=== PATIENT | female | born 1995 | race Caucasian/White ===

== ENCOUNTER 2016-08-08 16:40 | Emergency (ER) | payer OTHER ==
[2016-08-08] MEDS ORDERED: ACETAMINOPHEN TAB 500 MG TAB PO STA (17:45)
[2016-08-08] MEDS ORDERED: SODIUM CHLORIDE 0.9% 1,000 ML IV STA (17:45)
--- NOTE | 2016-08-08 17:53 | ED ---
Female Urogenital HPI - General Chief complaint: Vaginal Bleeding Stated complaint: Abd Pain, Female Time Seen by Provider: 08/08/16 17:32 Source: patient, RN notes reviewed Mode of arrival: ambulatory Limitations: no limitations - History of Present Illness Initial comments: 20-year-old female presents to the emergency department with a chief complaint of vaginal bleeding. Patient states she is 8 days late for her. She is having abdominal discomfort. Patient states she is concerned about she has been trying to get . Patient states that her lower pelvis is in a lot of discomfort. Patient states that she hasn't had any nausea vomiting. Patient states she hasn't felt fever or chills. Patient states that she is not currently having any other symptoms at this time.Patient denies any recent shortness of breath, chest pain, back pain, nausea vomiting, numbness or tingling, dysuria or hematuria, constipation or diarrhea, headaches or visual changes, or any other current symptoms. Last Menstrual Period: 07/14/16 - Related Data Home Medications Medication Instructions Recorded Confirmed Cephalexin [Keflex] 500 mg PO TID 08/08/16 08/08/16 Mupirocin 2% Oint [Bactroban 2% 1 applic TOPICAL TID 08/08/16 08/08/16 Oint] Pnp-Ikfr-Uwpda Acid 1 cap PO DAILY 08/08/16 08/08/16 [-U Capsule (formulary)] Sertraline [Zoloft] 25 mg PO DAILY 08/08/16 08/08/16 Allergies Allergy/AdvReac Type Severity Reaction Status Date / Time amoxicillin [Amoxicillin] Allergy Rash/Hives Verified 08/08/16 18:01 latex Allergy Rash/Hives Verified 08/08/16 18:01 Review of Systems ROS Statement: Those systems with pertinent positive or pertinent negative responses have been documented in the HPI. ROS Other: All systems not noted in ROS Statement are negative. Past Medical History Past Medical History: No Reported History History of Any Multi-Drug Resistant Organisms: None Reported Past Surgical History: No Surgical Hx Reported Past Psychological History: No Psychological Hx Reported Smoking Status: Never smoker Past Alcohol Use History: None Reported Past Drug Use History: None Reported General Exam - General Exam Comments Initial Comments: General: The patient is awake and alert, in no distress, and does not appear acutely ill. Eye: Pupils are equal, round and reactive to light, extra-ocular movements are intact; there is normal conjunctiva bilaterally. No signs of icterus. Ears, nose, mouth and throat: There are moist mucous membranes and no oral lesions. Neck: The neck is supple, there is no tenderness.gallop is appreciated. Respiratory: Lungs are clear to auscultation, respirations are non-labored, breath sounds are equal. No wheezes, stridor, rales, or rhonchi. Gastrointestinal: Soft, non-distended, non-tender abdomen without masses or organomegaly noted. There is no rebound or guarding present. No CVA tenderness. Bowel sounds are unremarkable. Back: There is no tenderness to palpation in the midline. There is no obvious deformity. No rashes noted. Musculoskeletal: Normal ROM, no tenderness, There is no pedal edema. There is no calf tenderness or swelling. Sensation intact. Pulses equal bilaterally 2+. Neurological: CN II-XII intact, There are no obvious motor or sensory deficits. Coordination appears grossly intact. Speech is normal. Skin: Skin is warm and dry and no rashes or lesions are noted. Psychiatric: Cooperative, appropriate mood & affect, normal judgment. Limitations: no limitations External exam: Present: normal external exam Speculum exam: Present: normal speculum exam, vaginal bleeding (Mild) By manual exam: Present: adnexal tenderness (Minimal on the right). Absent: cervical motion tenderness Course Vital Signs 08/08/16 17:09 Temperature 100.7 F H Pulse Rate 99 Respiratory 20 Rate Blood Pressure 136/80 O2 Sat by Pulse 98 Oximetry Medical Decision Making - Medical Decision Making 20 yo female presents for vaginal bleeding and abdominal pain. At this time vaginal bleeding is minimal. Patient is negative for . At this time we discussed Motrin Tylenol for the pain. We discussed follow-up with [employer] and return parameters. Patient has a mild low-grade fever which is most likely related to menstrual cycle. At this time the patient is agreeable with plan and all questions have been answered. She will be discharged home. - Lab Data Result diagrams: 08/08/16 18:00 08/08/16 18:00 Lab Results 08/08/16 08/08/16 08/08/16 Range/Units 18:00 18:00 18:00 WBC 11.1 H (4.0-11.0) k/uL RBC 5.30 (3.80-5.40) m/uL Hgb 13.9 (11.4-16.0) gm/dL Hct 42.4 (34.0-46.0) % MCV 80.0 (80.0-100.0) fL MCH 26.2 (25.0-35.0) pg MCHC 32.7 (31.0-37.0) g/dL RDW 14.4 (11.5-15.5) % Plt Count 365 (150-450) k/uL Neutrophils % 71 % Lymphocytes % 22 % Monocytes % 4 % Eosinophils % 1 % Basophils % 0 % Neutrophils # 7.9 H (1.3-7.7) k/uL Lymphocytes # 2.4 (1.0-4.8) k/uL Monocytes # 0.5 (0-1.0) k/uL Eosinophils # 0.2 (0-0.7) k/uL Basophils # 0.0 (0-0.2) k/uL Sodium 145 (137-145) mmol/L Potassium 4.2 (3.5-5.1) mmol/L Chloride 109 H (98-107) mmol/L Carbon Dioxide 25 (22-30) mmol/L Anion Gap 11 mmol/L BUN 10 (7-17) mg/dL Creatinine 0.68 (0.52-1.04) mg/dL Est GFR (MDRD) Af Amer >60 (>60 ml/min/1.73 sqM) Est GFR (MDRD) Non-Af >60 (>60 ml/min/1.73 sqM) Glucose 91 (74-99) mg/dL Calcium 9.9 (8.4-10.2) mg/dL Total Bilirubin 0.3 (0.2-1.3) mg/dL AST 19 (14-36) U/L ALT 34 (9-52) U/L Alkaline Phosphatase 101 (38-126) U/L Total Protein 7.6 (6.3-8.2) g/dL Albumin 4.2 (3.5-5.0) g/dL HCG, Quant <2.4 mIU/mL Urine Color Urine Appearance (Clear) Urine pH (5.0-8.0) Ur Specific [place] (1.001-1.035) Urine Protein (Negative) Urine Glucose (UA) (Negative) Urine Ketones (Negative) Urine Blood (Negative) Urine Nitrite (Negative) Urine Bilirubin (Negative) Urine Urobilinogen (<2.0) mg/dL Ur Leukocyte Esterase (Negative) Urine RBC (0-5) /hpf Urine WBC (0-5) /hpf Ur Squamous Epith Cells (0-4) /hpf Urine Mucus (None) /hpf Urine HCG, Qual Not Detected (Not Detectd) Influenza Type A RNA (Not Detectd) Influenza Type B (PCR) (Not Detectd) 08/08/16 08/08/16 Range/Units 18:00 18:00 WBC (4.0-11.0) k/uL RBC (3.80-5.40) m/uL Hgb (11.4-16.0) gm/dL Hct (34.0-46.0) % MCV (80.0-100.0) fL MCH (25.0-35.0) pg MCHC (31.0-37.0) g/dL RDW (11.5-15.5) % Plt Count (150-450) k/uL Neutrophils % % Lymphocytes % % Monocytes % % Eosinophils % % Basophils % % Neutrophils # (1.3-7.7) k/uL Lymphocytes # (1.0-4.8) k/uL Monocytes # (0-1.0) k/uL Eosinophils # (0-0.7) k/uL Basophils # (0-0.2) k/uL Sodium (137-145) mmol/L Potassium (3.5-5.1) mmol/L Chloride (98-107) mmol/L Carbon Dioxide (22-30) mmol/L Anion Gap mmol/L BUN (7-17) mg/dL Creatinine (0.52-1.04) mg/dL Est GFR (MDRD) Af Amer (>60 ml/min/1.73 sqM) Est GFR (MDRD) Non-Af (>60 ml/min/1.73 sqM) Glucose (74-99) mg/dL Calcium (8.4-10.2) mg/dL Total Bilirubin (0.2-1.3) mg/dL AST (14-36) U/L ALT (9-52) U/L Alkaline Phosphatase (38-126) U/L Total Protein (6.3-8.2) g/dL Albumin (3.5-5.0) g/dL HCG, Quant mIU/mL Urine Color Light Red Urine Appearance Cloudy H (Clear) Urine pH 5.5 (5.0-8.0) Ur Specific [place] 1.012 (1.001-1.035) Urine Protein 1+ H (Negative) Urine Glucose (UA) Negative (Negative) Urine Ketones Negative (Negative) Urine Blood Large H (Negative) Urine Nitrite Negative (Negative) Urine Bilirubin Negative (Negative) Urine Urobilinogen <2.0 (<2.0) mg/dL Ur Leukocyte Esterase Moderate H (Negative) Urine RBC >182 H (0-5) /hpf Urine WBC 75 H (0-5) /hpf Ur Squamous Epith Cells 2 (0-4) /hpf Urine Mucus Rare H (None) /hpf Urine HCG, Qual (Not Detectd) Influenza Type A RNA Not Detected (Not Detectd) Influenza Type B (PCR) Not Detected (Not Detectd) Disposition Clinical Impression: Menorrhagia Disposition: HOME SELF-CARE Condition: Stable Instructions: Menstruation (ED) Additional Instructions: Please use medication as discussed. Please follow up with family doctor if symptoms have not improved over the next two days. Please return to the emergency room if your symptoms increase or worsen or for any other concerns. Referrals: Sergio Matute Jr, DO [Primary Care Provider] - 1-2 days Time of Disposition: 18:56
[2016-08-08 18:25] LABS: Basophils % (A) 0 %; CHCM 32.6; Eosinophils # (A) 0.2 k/uL (0-0.7); Eosinophils % (A) 1 %; HCT 42.4 % (34.0-46.0); HDW 2.55; HGB 13.9 gm/dL (11.4-16.0); Luc # (Auto) 0.16; Luc % (Auto) 1; Lymphocytes # (A) 2.4 k/uL (1.0-4.8); Lymphocytes % (A) 22 %; MCH 26.2 pg (25.0-35.0); MCHC 32.7 g/dL (31.0-37.0); Mean Platelet Volume 6.9; Monocytes # (A) 0.5 k/uL (0-1.0); Monocytes % (A) 4 %; Neutrophils # (A) 7.9 k/uL (1.3-7.7); Neutrophils % (A) 71 %; RDW 14.4 % (11.5-15.5); WBC 11.1 k/uL (4.0-11.0); WBC (Perox) 11.39
[2016-08-08 18:31] LABS: Appearance,Urine Cloudy (Clear); Bilirubin,Urine Negative (Negative); Glucose,Urine (UA) Negative (Negative); Ketones,Urine Negative (Negative); Leukocyte Esterase,Urine Moderate (Negative); Mucus,Urine Rare /hpf; Nitrite,Urine Negative (Negative); PH, Urine 5.5 (5.0-8.0); Particle Count 7708; Protein,Urine 1+ (Negative); RBC,Urine >182 /hpf (0-5); Specific Gravity,Urine 1.012 (1.001-1.035); Squamous Epithelial Cell,Urine 2 /hpf (0-4); UA Billing (MACRO vs. MICRO) MICRO; Urobilinogen,Urine <2.0 mg/dL (<2.0); WBC,Urine 75 /hpf (0-5)
[2016-08-08 18:34] LABS: ALT 34 U/L (9-52); AST 19 U/L (14-36); Alkaline Phosphatase 101 U/L (38-126); Anion Gap 11 mmol/L; Blood Urea Nitrogen 10 mg/dL (7-17); Calcium 9.9 mg/dL (8.4-10.2); Carbon Dioxide 25 mmol/L (22-30); Chloride 109 mmol/L (98-107); Glucose 91 mg/dL (74-99); Non-African American GFR(MDRD) >60 (>60 ml/min/1.73 sqM); Potassium 4.2 mmol/L (3.5-5.1); Sodium 145 mmol/L (137-145); Total Bilirubin 0.3 mg/dL (0.2-1.3); Total Protein 7.6 g/dL (6.3-8.2)
[2016-08-08 18:50] LABS: HCG,Quantitative Serum <2.4 mIU/mL
[2016-08-08 19:18] VITALS: BP 132/71; PULSE 89; RESP 16; TEMP 100.2
== END 2016-08-08 19:16 | disposition home or self-care (01) ==
LOC: EC 16:40
DX: N92.0 Excessive and frequent menstruation with regular cycle (principal); R10.2 Pelvic and perineal pain; Z32.02 Encounter for pregnancy test, result negative; Z79.899 Other long term (current) drug therapy; Z88.0 Allergy status to penicillin; Z91.040 Latex allergy status
CPT/HCPCS: 36415; 80053; 81001; 81025; 84702; 85025; 87086; 87502; 96360; 99284

== ENCOUNTER → 2016-11-08 | Outpatient (CLI) | payer OTHER ==
[2016-11-08 17:39] LABS: CH 26.6; CHCM 32.7; HCT 39.3 % (34.0-46.0); HDW 2.42; MCV 81.6 fL (80.0-100.0); Mean Platelet Volume 7.1; RBC 4.81 m/uL (3.80-5.40); WBC 11.9 k/uL (4.0-11.0)
[2016-11-08 17:47] LABS: Glucose 82 mg/dL (74-99); Non-African American GFR(MDRD) >60 (>60 ml/min/1.73 sqM)
[2016-11-08 18:19] LABS: Hepatitis B Surface Ag Index 0.05
--- NOTE | 2016-11-08 19:18 | US ---
EXAMINATION TYPE: US OB <= 14 wk fetus DATE OF EXAM: 11/08/2016 COMPARISON: NONE CLINICAL HISTORY: Z36 Confirm dates. EXAM PERFORMED: Transabdominal (TA) EXAM MEASUREMENTS: GESTATIONAL AGE / DATING Physician Established: not established Dates by LMP: (13 weeks/1 day) EDC: 05/15/2017 Dates by First Scan: Today Dates by Current Scan for: (12 weeks/4 days) EDC: 05/19/2017 MATERNAL ANATOMY: exam is technically limited by large maternal body habitus Uterus: 13.8 x 7.5 x 6.8cm Right Ovary: not seen Left Ovary: 3.2 x 2.8 x 2.5cm Post CDS / Adnexa: wnl Presence of free fluid: no Presence of corpus luteal cyst: not identified Presence of subchorionic bleed: no GESTATION / SURVEY CRL: 6.1cm (12 weeks/4 days) Yolk Sac (normal less than 6mm): not seen Heart Rate: 172 bpm Rhythm: Normal IUP: Viable IUP Date of LMP: 08/08/2016 Beta HcG (if available): NA Single, live, IUP, 12 weeks/4 days),EDC: 05/19/2017, HR 172bpm. IMPRESSION: The ultrasound gestational age is 12 weeks 4 days. I see no complicating process. The JACLYN is 05/19/20 17.
== END | disposition home or self-care (01) ==
LOC: RADUSMAIN 17:25
PROVIDERS: ATTEND Obstetrics & Gynecology
DX: Z36 Encounter for antenatal screening of mother (principal); Z34.01 Encounter for supervision of normal first pregnancy, first trimester; Z3A.12 12 weeks gestation of pregnancy
CPT/HCPCS: 76801; 82565; 82947; 85027; 86762; 86777; 86778; 86780; 86850; 86900; 86901; 87340

== ENCOUNTER → 2017-02-24 | Outpatient (CLI) | payer OTHER ==
[2017-02-24 14:40] LABS: CH 27.1; HCT 34.8 % (34.0-46.0); HDW 2.72; HGB 11.4 gm/dL (11.4-16.0); MCHC 32.7 g/dL (31.0-37.0); MCV 82.5 fL (80.0-100.0); Mean Platelet Volume 8.4; RBC 4.21 m/uL (3.80-5.40); RDW 14.7 % (11.5-15.5); WBC 10.7 k/uL (4.0-11.0)
== END | disposition home or self-care (01) ==
LOC: LABWHC1 13:14
PROVIDERS: ATTEND Obstetrics & Gynecology
DX: Z34.02 Encounter for supervision of normal first pregnancy, second trimester (principal)
CPT/HCPCS: 36415; 82950; 85027

== ENCOUNTER 2017-03-09 14:49 | Outpatient (CLI) | payer OTHER ==
[2017-03-09 15:39] VITALS: BP 134/79; PULSE 103; RESP 16; TEMP 98.5
--- NOTE | 2017-03-22 08:57 | P.MSEPDOC ---
Presenting Problems - Arrival Data Date of Arrival on Unit: 03/09/17 Time of Arrival on Unit: 14:49 Mode of Transport: Ambulatory - Complaint OB-Reason for Admission/Chief Complaint: Decreased Movement Comment: pt states no movement since yesterday Medical History - Information : 1 Para: 0 Term: 0 : 0 Abortions: Spontaneous or Elective: 0 Number of Living Children: 0 - Gestational Age Gestational Age by JACLYN (wks/days): 30 Weeks and 3 Days Review of Systems - Review of Systems Constitutional: No problems Breast: No problems ENT: No problems Cardiovascular: No problems Respiratory: No problems Gastrointestinal: No problems Genitourinary: No problems Musculoskeletal: No problems Neurological: No problems Skin: No problems Vital Signs - Temperature Temperature: 98.5 F Temperature Source: Oral - Pulse Right Brachial Pulse Rate: 103 Pulse Assessment Method: Automatic Cuff - Respirations Respiratory Rate: 16 Oxygen Delivery Method: Room Air O2 Sat by Pulse Oximetry: 97 - Blood Pressure Right Arm Blood Pressure: 134/79 Blood Pressure Mean: 97 Blood Pressure Source: Automatic Cuff Medical Screen Scoring (Pre) - Uterine Contractions Frequency: N/A Duration: N/A Intensity: N/A - Maternal Vital Signs Maternal Temperature: N/A Maternal Blood Pressure: N/A Signs of Preeclampsia: N/A Maternal Respirations: N/A - Maternal Trauma Maternal Trauma: N/A - Assessment Baseline FHR: 140 Heart Rate - NICHD Category: Category I (Normal) = 0 NST: Reactive Position: N/A Station: N/A - Total Score Total Score (Pre): 0 - Level of Risk Level of Risk: Low (0-5) Physician Notification (Pre) - Physician Notified Physician Notified Date: 03/09/17 Physician Notified Time: 15:38 Physician/Practitioner Notifed:: Dr Cabrera Spoke With: Dr Cabrera New Order Received: No - Notification Comment Comment: pt may be discharged home Disposition - Disposition OB Disposition: Discharge to home Discharge Date: 03/09/17 Discharge Time: 15:39 I agree with the RN Medical Screening Exam: Yes Risk & Benefit of care provided described in d/c instruction: Yes Diagnosis: DECREASED MOVEMENTS, THIRD TRIMESTER, FETUS 1
== END 2017-03-09 15:47 | disposition home or self-care (01) ==
LOC: FBPOP 14:49
PROVIDERS: ATTEND Obstetrics & Gynecology
DX: O36.8130 Decreased fetal movements, third trimester, not applicable or unspecified (principal)
CPT/HCPCS: 59025; G0463; 99213

== ENCOUNTER 2017-05-28 19:03 | Inpatient (IN) | payer OTHER ==
[2017-05-28] MEDS ORDERED: RX INFO: IV CONTRAST WAS GIVEN 1 EACH MISC MISCELLANE PRN (19:30)
[2017-05-28] MEDS ORDERED: IBUPROFEN 800 MG TAB PO STA (19:30)
[2017-05-28] MEDS ORDERED: metroNIDAZOLE 500 MG TAB PO STA (19:35)
[2017-05-28] MEDS ORDERED: SODIUM CHLORIDE 0.9% 2,000 ML IV ONE (19:36)
[2017-05-28] MEDS ORDERED: SODIUM CHLORIDE 0.9% 1,000 ML IV ONE ×2 (19:36→19:37)
--- NOTE | 2017-05-28 19:44 | ED ---
Fever HPI - General Chief Complaint: Fever Stated Complaint: Poss Post Op Infection Time Seen by Provider: 05/28/17 19:16 Source: patient Mode of arrival: ambulatory Limitations: no limitations - History of Present Illness Initial Comments: Patient is a 21-year-old female, one week status post who presents with a chief complaint of fever and concerns for infection of her surgical site for 2 days. The patient states that she began having a fever about 2 days ago and then noticed drainage from her surgical site. Patient states that she has been going through 1 APD pad about every 2 hours. She states that the drainage is bloody and foul smelling. She denies any shortness of breath, dysuria, abdominal pain otherwise, constipation or diarrhea. The patient currently is taking Motrin and [place] for pain. She is currently breast-feeding. - Related Data Home Medications Medication Instructions Recorded Confirmed HYDROcodone/APAP 7.5-325MG [[place] 1 tab PO Q6H PRN 05/28/17 05/28/17 7.5-325] Previous Rx's Medication Instructions Recorded Ibuprofen [Motrin] 600 mg PO Q6HR PRN #30 tab 05/24/17 Allergies Allergy/AdvReac Type Severity Reaction Status Date / Time amoxicillin [Amoxicillin] Allergy Rash/Hives Verified 05/28/17 19:16 latex Allergy Rash/Hives Verified 05/28/17 19:16 Penicillins Allergy Rash/Hives Verified 05/28/17 19:16 Review of Systems ROS Statement: Those systems with pertinent positive or pertinent negative responses have been documented in the HPI. ROS Other: All systems not noted in ROS Statement are negative. Constitutional: Reports: fever, chills Skin: Reports: lesions, change in color Past Medical History Past Medical History: No Reported History Additional Past Medical History / Comment(s): Obstetric history: This is her first and she has had care with me since 11 weeks. O+, abs neg, RUb nonimmune, Treponemal ab neg, Hep B neg, toxo neg. GBS neg. History of Any Multi-Drug Resistant Organisms: None Reported Past Surgical History: No Surgical Hx Reported Past Anesthesia/Blood Transfusion Reactions: No Reported Reaction Past Psychological History: No Psychological Hx Reported Smoking Status: Former smoker Past Alcohol Use History: None Reported Past Drug Use History: None Reported - Past Family History Father Family Medical History: No Reported History General Exam Limitations: no limitations General appearance: alert, in no apparent distress Head exam: Present: atraumatic, normocephalic Respiratory exam: Present: normal lung sounds bilaterally Cardiovascular Exam: Present: normal rhythm, tachycardia GI/Abdominal exam: Present: soft. Absent: guarding, rebound Back exam: Present: normal inspection Neurological exam: Present: alert, oriented X3 Psychiatric exam: Present: normal affect, normal mood Skin exam: Present: other (Examination of the patient's surgical scar shows that she has surrounding erythema and induration. There is drainage with pressure applied to the surgical site. The drainage appears purulent and serosanguineous. There is a followed her present. The patient has tenderness to palpation of that area.) Course Vital Signs 05/28/17 05/28/17 05/28/17 19:10 20:15 20:30 Temperature 102 F H 103.2 F H 102.9 F H Pulse Rate 127 H 118 H 112 H Respiratory 20 18 18 Rate Blood Pressure 137/78 147/73 142/67 O2 Sat by Pulse 98 97 97 Oximetry 05/28/17 21:11 Temperature 102.5 F H Pulse Rate 104 H Respiratory 18 Rate Blood Pressure 131/59 O2 Sat by Pulse 96 Oximetry Medical Decision Making - Medical Decision Making Patient is a 21-year-old female who presents with a chief complaint of fever and concern for infection of her surgical site. On initial evaluation, patient is febrile and tachycardic. Examination of the site shows an obvious infection. At this time, the patient is considered septic with 2 seizures criteria and a source. Patient was given a total of 4 L normal saline bolus to meet the 30 mL per KG requirement. She was started on cefepime and Flagyl after consultation with Dr. Centeno. The patient with basic lab work, blood cultures, lactic, and be sent for CT evaluation of the abdomen and pelvis. Dr. eCnteno accepts admission under Dr. Watts. Dr. Centeno will be updated if the CT shows findings that require emergent consultation. Lab evaluation this patient is unremarkable. Computed tomography scan of the abdomen and pelvis shows inflammation at the surgical site, however it does not demonstrate any defined pocket or abscess. On reevaluation, the patient is still febrile and tachycardic. The decision was made to admit the patient to the select floor with IV antibiotics and IV fluids. The patient was transferred in stable condition. - Lab Data Result diagrams: 05/28/17 20:03 05/28/17 20:03 Lab Results 05/28/17 05/28/17 05/28/17 Range/Units 20:03 20:03 20:03 WBC 7.8 (4.0-11.0) k/uL RBC 3.49 L (3.80-5.40) m/uL Hgb 8.4 L (11.4-16.0) gm/dL Hct 27.1 L (34.0-46.0) % MCV 77.6 L (80.0-100.0) fL MCH 24.2 L (25.0-35.0) pg MCHC 31.2 (31.0-37.0) g/dL RDW 14.9 (11.5-15.5) % Plt Count 427 (150-450) k/uL Neutrophils % 79 % Lymphocytes % 13 % Monocytes % 5 % Eosinophils % 1 % Basophils % 0 % Neutrophils # 6.2 (1.3-7.7) k/uL Lymphocytes # 1.0 (1.0-4.8) k/uL Monocytes # 0.4 (0-1.0) k/uL Eosinophils # 0.1 (0-0.7) k/uL Basophils # 0.0 (0-0.2) k/uL Microcytosis Slight Sodium 140 (137-145) mmol/L Potassium 3.7 (3.5-5.1) mmol/L Chloride 104 (98-107) mmol/L Carbon Dioxide 25 (22-30) mmol/L Anion Gap 11 mmol/L BUN 8 (7-17) mg/dL Creatinine 0.60 (0.52-1.04) mg/dL Est GFR (MDRD) Af Amer >60 (>60 ml/min/1.73 sqM) Est GFR (MDRD) Non-Af >60 (>60 ml/min/1.73 sqM) Glucose 83 (74-99) mg/dL Plasma Lactic Acid Maurice 0.8 (0.7-2.0) mmol/L Calcium 8.7 (8.4-10.2) mg/dL Total Bilirubin 0.2 (0.2-1.3) mg/dL AST 18 (14-36) U/L ALT 40 (9-52) U/L Alkaline Phosphatase 176 H (38-126) U/L Total Protein 5.4 L (6.3-8.2) g/dL Albumin 2.7 L (3.5-5.0) g/dL Disposition Clinical Impression: Sepsis, Surgical wound infection, Systemic inflammatory response syndrome (SIRS ) Disposition: ADMITTED IP TO THIS [facility] Condition: Fair Referrals: None,Stated [Primary Care Provider] - 1-2 days Decision to Admit Reason: Admit from EC - Out of Hospital Transfer - Req. Specs Out of Hospital Transfer - Requested Specifics: Surgical ICU
[2017-05-28] MEDS ORDERED: NALOXONE 0.4 MG/ML 1 ML VIAL IV PRN (19:47)
[2017-05-28] MEDS ORDERED: ONDANSETRON 4 MG/2 ML VIAL IVP PRN (19:47)
[2017-05-28] MEDS ORDERED: ACETAMINOPHEN TAB 500 MG TAB PO STA (20:27)
[2017-05-28 20:33] LABS: Basophils % (A) 0 %; Eosinophils # (A) 0.1 k/uL (0-0.7); Eosinophils % (A) 1 %; HCT 27.1 % (34.0-46.0); HGB 8.4 gm/dL (11.4-16.0); Lymphocytes % (A) 13 %; MCH 24.2 pg (25.0-35.0); MCHC 31.2 g/dL (31.0-37.0); MCV 77.6 fL (80.0-100.0); Mean Platelet Volume 7.2; Microcytosis Slight; Monocytes # (A) 0.4 k/uL (0-1.0); Monocytes % (A) 5 %; Neutrophils # (A) 6.2 k/uL (1.3-7.7); Neutrophils % (A) 79 %; Platelet Count 427 k/uL (150-450); RBC 3.49 m/uL (3.80-5.40); RDW 14.9 % (11.5-15.5); WBC 7.8 k/uL (4.0-11.0)
--- NOTE | 2017-05-28 20:41 | CT ---
EXAMINATION TYPE: CT abdomen pelvis w con DATE OF EXAM: 05/28/2017 HISTORY: Patient complains of pelvic pain near incision post on 05-22-17. CT DLP: 2252.9mGycm Automated Exposure Control for Dose Reduction was Utilized. CONTRAST: CT scan of the abdomen and pelvis is performed without oral and with IV Contrast, patient injected wi th 100 mL of Omnipaque 300. COMPARISON: None. FINDINGS: LUNG BASES: There is 6 x 4 mm lateral right basilar nodule axial image 3. LIVER/GB: Liver is upper limits of normal in size. PANCREAS: No significant abnormality is seen. SPLEEN: Spleen is mildly enlarged at 13.3 cm coronal image 67. ADRENALS: No significant abnormality is seen. KIDNEYS: No significant abnormality is seen. BOWEL: No significant abnormality is seen. UTERUS/ADNEXA: Heterogeneous enlarged uterus with central gas is present. There is some ill-defined f luid and subcutaneous air in the lower anterior abdominal wall centered near coronal image 26 system with history of recent . Small thin-walled focal fluid collection axial image 76 level midli ne measures 4.9 x 2.0 cm is nonspecific. Postsurgical seroma would be favored. LYMPH NODES: No greater than 1cm abdominal or pelvic lymph nodes are appreciated. OSSEOUS STRUCTURES: No significant abnormality is seen. OTHER: No significant additional abnormality is seen. IMPRESSION: Nonspecific findings lower anterior abdominal wall and in the uterus. Findings favor expe cted changes related to recent . Infection cannot be excluded. No well-formed drainable absc ess is present.
[2017-05-28 20:47] LABS: ALT 40 U/L (9-52); AST 18 U/L (14-36); Albumin 2.7 g/dL (3.5-5.0); Alkaline Phosphatase 176 U/L (38-126); Anion Gap 11 mmol/L; Blood Urea Nitrogen 8 mg/dL (7-17); Calcium 8.7 mg/dL (8.4-10.2); Carbon Dioxide 25 mmol/L (22-30); Chloride 104 mmol/L (98-107); Glucose 83 mg/dL (74-99); Potassium 3.7 mmol/L (3.5-5.1); Sodium 140 mmol/L (137-145); Total Bilirubin 0.2 mg/dL (0.2-1.3); Total Protein 5.4 g/dL (6.3-8.2)
[2017-05-28] MEDS ORDERED: CEFEPIME 1 GM VIAL IM SCH (21:00)
[2017-05-28] MEDS: CEFEPIME 1 GM in SODIUM CHLORIDE 0.9% 50 ML IVPB SCH (21:09)
[2017-05-28 23:55] VITALS: BMI 48.9
[2017-05-29] MEDS: HYDROcodone/APAP 5-325MG 1 EACH TAB PO PRN ×3 (00:02→10:01)
[2017-05-29] MEDS: IBUPROFEN 400 MG TAB PO PRN ×3 (05:48→20:01)
[2017-05-29] MEDS: CEFEPIME 1 GM in SODIUM CHLORIDE 0.9% 50 ML IVPB SCH ×2 (08:56→20:52)
--- NOTE | 2017-05-29 12:00 | P.HPOB ---
History of Present Illness H&P Date: 05/29/17 Chief Complaint: Incisional infection This is a 21-year-old female, , who delivered by section on 2016, and presented to the emergency room last night complaining of increasing drainage from her incision. She stated she had to change a abdominal pad every 1-2 hours and it was saturated with a very foul-smelling bloody, pussy discharge. This is been going on for approximately 3 days now. She also noticed a hardness above her incision on her panniculus. She denied feeling feverish but did state she felt a little warm at home. She has been breast- feeding. Her pain is been fairly well-controlled with ibuprofen and [place]. Obstetrical history: . History of a primary section on 2016 for failure to progress. Review of Systems Constitutional: Reports malaise Eyes: denies blurred vision, denies pain Ears, nose, mouth and throat: Reports headache, Denies sore throat Cardiovascular: Denies chest pain, Denies shortness of breath Respiratory: Denies cough Gastrointestinal: Reports abdominal pain (Incisional) Genitourinary: Reports pelvic pain Musculoskeletal: Denies myalgias Integumentary: Reports wounds (Redness above her incision on her scar) Neurological: Denies numbness, Denies weakness Psychiatric: Denies anxiety, Denies depression Past Medical History Past Medical History: No Reported History History of Any Multi-Drug Resistant Organisms: None Reported Past Surgical History: Section (05/22/2017) Past Anesthesia/Blood Transfusion Reactions: No Reported Reaction Past Psychological History: No Psychological Hx Reported Smoking Status: Never smoker Past Alcohol Use History: None Reported Past Drug Use History: None Reported - Past Family History Father Family Medical History: No Reported History Medications and Allergies Home Medications Medication Instructions Recorded Confirmed Type Ibuprofen [Motrin] 600 mg PO Q6HR PRN #30 tab 05/24/17 05/28/17 Rx HYDROcodone/APAP 7.5-325MG [[place] 1 tab PO Q6H PRN 05/28/17 05/28/17 History 7.5-325] Allergies Allergy/AdvReac Type Severity Reaction Status Date / Time amoxicillin [Amoxicillin] Allergy Rash/Hives Verified 05/28/17 19:16 latex Allergy Rash/Hives Verified 05/28/17 19:16 Penicillins Allergy Rash/Hives Verified 05/28/17 19:16 Exam Osteopathic Statement: *. No significant issues noted on an osteopathic structural exam other than those noted in the History and Physical/Consult. - Vital Signs Vital signs: Vital Signs Temp Pulse Pulse Resp BP BP Pulse Ox 05/29/17 11:08 93 16 120/62 97 05/29/17 08:00 97.8 F 81 17 121/56 95 05/29/17 04:00 97.3 F L 94 18 116/64 97 05/29/17 00:00 97.7 F 103 H 18 127/62 98 05/28/17 23:44 101.0 F H 113 H 18 133/79 95 05/28/17 21:11 102.5 F H 104 H 18 131/59 96 05/28/17 20:30 102.9 F H 112 H 18 142/67 97 05/28/17 20:15 103.2 F H 118 H 18 147/73 97 05/28/17 19:10 102 F H 127 H 20 137/78 98 Intake and Output 05/28/17 05/29/17 05/29/17 22:59 06:59 14:59 Intake Total 180 Output Total 1 Balance -1 180 Intake: Oral 180 Output: Urine 1 Other: Voiding Method Toilet Toilet # Voids 2 Weight 131.542 kg 133.7 kg Gen.: Well-developed well-nourished female in no acute distress HEENT: Within normal limits Heart: Regular rate and rhythm Lungs: Clear to auscultation bilaterally Abdomen: Patient has a large panniculus that is firm and hard in the midline above the incision. There is some redness along the panniculus. Incision shows a pinhole area of drainage in the midline and is draining a purulent slightly bloody foul-smelling discharge. Incision is otherwise intact. Extremities: Negative Homans Results Result Diagrams: 05/28/17 20:03 05/28/17 20:03 Abnormal Lab Results - Last 24 Hours (Table) 05/28/17 05/28/17 Range/Units 20:03 20:03 RBC 3.49 L (3.80-5.40) m/uL Hgb 8.4 L (11.4-16.0) gm/dL Hct 27.1 L (34.0-46.0) % MCV 77.6 L (80.0-100.0) fL MCH 24.2 L (25.0-35.0) pg Alkaline Phosphatase 176 H (38-126) U/L Total Protein 5.4 L (6.3-8.2) g/dL Albumin 2.7 L (3.5-5.0) g/dL CT scan - pelvis: report reviewed Assessment and Plan (1) Surgical wound infection Current Visit: Yes Status: Acute Code(s): T81.4XXA - INFECTION FOLLOWING A PROCEDURE, INITIAL ENCOUNTER SNOMED Code(s): 50156129 (2) Status post primary low transverse section Current Visit: No Status: Acute Code(s): Z98.891 - HISTORY OF UTERINE SCAR FROM PREVIOUS SURGERY SNOMED Code(s): 173516721 Plan: Admission for incisional infection. We'll continue with IV cephalosporin and will add Flagyl orally. We'll continue to monitor until she is afebrile for at least 24 hours. She is encouraged to continue to shower and move around. Will continue to pump her breast milk. Patient understands the need for antibiotic treatment and good wound care. All her questions regarding plan of care were answered.
[2017-05-29] MEDS: PRENATAL VIT-IRON-FOLIC ACID 1 EACH CAP PO SCH (13:58)
[2017-05-29] MEDS: metroNIDAZOLE 500 MG TAB PO SCH ×2 (13:58→20:52)
[2017-05-29] MEDS ORDERED: LIDOCAINE 1% INJ 10MG/ML (20 ML MDV) ONE (15:27)
[2017-05-29] MEDS: ACETAMINOPHEN TAB 325 MG TAB PO PRN (22:05)
[2017-05-30] MEDS: IBUPROFEN 400 MG TAB PO PRN ×4 (03:26→23:54)
[2017-05-30] MEDS: ACETAMINOPHEN TAB 325 MG TAB PO PRN ×4 (05:08→21:00)
[2017-05-30 06:47] LABS: Anisocytosis Slight; Basophils % (A) 1 %; Eosinophils # (A) 0.2 k/uL (0-0.7); Eosinophils % (A) 2 %; HCT 23.9 % (34.0-46.0); HGB 7.1 gm/dL (11.4-16.0); Hypochromasia Moderate; Lymphocytes # (A) 1.6 k/uL (1.0-4.8); Lymphocytes % (A) 23 %; MCH 23.6 pg (25.0-35.0); MCHC 29.7 g/dL (31.0-37.0); MCV 79.4 fL (80.0-100.0); Mean Platelet Volume 7.7; Monocytes # (A) 0.5 k/uL (0-1.0); Monocytes % (A) 7 %; Neutrophils # (A) 4.5 k/uL (1.3-7.7); Neutrophils % (A) 64 %; Platelet Count 471 k/uL (150-450); RBC 3.01 m/uL (3.80-5.40); RDW 16.1 % (11.5-15.5); WBC 6.9 k/uL (4.0-11.0)
[2017-05-30] MEDS: LACTATED RINGERS 1,000 ML IV SCH (07:54)
[2017-05-30] MEDS: metroNIDAZOLE 500 MG TAB PO SCH ×2 (09:16→21:00)
[2017-05-30] MEDS: CEFEPIME 1 GM in SODIUM CHLORIDE 0.9% 50 ML IVPB SCH ×2 (09:17→21:00)
[2017-05-30] MEDS: PRENATAL VIT-IRON-FOLIC ACID 1 EACH CAP PO SCH (10:50)
--- NOTE | 2017-05-30 12:13 | P.PN ---
Progress Note - Text Progress Note Date: 05/30/17 21 year old S/P 1*LTCS POD #8 with cellulitis and seroma at incision site. She is on cefipime and flagyl. This combination seems to be working well. Her appetite is good and she is afebrile. She is moving well, ambulating, voiding and +flatus. Abdomen: The erythema and induration have decreased from yesterday, the fluid coming from the 1cm hole in the incision is serosanguinous and no odor. I did probe the incision with a q-tip, it only goes about 2cm deep, 1cm on each side. A1. s/p LTCS POD #8 2. incisional infection-waiting on culture P1. continue IV abx for one more night then likely switch to oral and d/c home as long as this course of afebrile improvement continues.
[2017-05-31] MEDS: ACETAMINOPHEN TAB 325 MG TAB PO PRN (04:40)
[2017-05-31] MEDS: IBUPROFEN 400 MG TAB PO PRN (06:55)
--- NOTE | 2017-05-31 08:14 | P.DS ---
Providers Date of admission: 05/28/17 19:47 Expected date of discharge: 05/31/17 Attending physician: Ani Watts Primary care physician: Stated None - Discharge Diagnosis(es) (1) Status post primary low transverse section Current Visit: No Status: Acute (2) Surgical wound infection Current Visit: Yes Status: Acute Hospital Course: 21-year-old status post primary low transverse presented to the hospital postoperative day #6 with fevers and purulent discharge coming out of her incision. She is diagnosed with a incisional wound infection and started on cefepime and Flagyl orally. The wound was not cultured until she got to the floor an RN realizing the ER never did the cultures. Those cultures are pending but did show gram-negative bacilli. Since having the IV antibiotics the erythema and induration has improved, the purulent drainage has changed to serosanguineous. There is no odor coming from her incision. She has been afebrile for about 36 hours. She'll be discharged home on oral antibiotics, Keflex and Flagyl. She will follow up with me in 3 days. She knows to return to the hospital or call me if she started spiking temperatures again over the fluid changes in color without odor starts to return. She is taking Tylenol and Motrin for pain, and scant continues to breast-feed. Breast-feeding is going well and there are no signs of mastitis. She is telling regular diet voiding and ambulating, positive flatus. Denies nausea, vomiting, chest pain, shortness of breath or calf pain. Patient Condition at Discharge: Fair Plan - Discharge Summary Discharge Rx Participant: Yes New Discharge Prescriptions: New Acetaminophen Tab [Tylenol] 650 mg PO Q6HR PRN tab PRN Reason: Mild Pain Or Fever > 100.5 Cephalexin [Keflex] 500 mg PO Q6HR #30 cap Ibuprofen [Motrin] 800 mg PO Q6HR PRN tab PRN Reason: Mild Pain Or Fever > 100.5 metroNIDAZOLE [Flagyl] 500 mg PO BID #14 tab Shu-Klzu-Ynrzj Acid [-U Capsule (formulary)] 1 each PO DAILY @1200 cap Continue Ibuprofen [Motrin] 600 mg PO Q6HR PRN #30 tab PRN Reason: Mild Pain Or Fever >= 100.5 Discontinued HYDROcodone/APAP 7.5-325MG [[place]field 7.5-325] 1 tab PO Q6H PRN PRN Reason: Pain Discharge Medication List Ibuprofen [Motrin] 600 mg PO Q6HR PRN #30 tab 05/24/17 [Rx] Acetaminophen Tab [Tylenol] 650 mg PO Q6HR PRN tab 05/31/17 [Rx] Cephalexin [Keflex] 500 mg PO Q6HR #30 cap 05/31/17 [Rx] Ibuprofen [Motrin] 800 mg PO Q6HR PRN tab 05/31/17 [Rx] Bbk-Lron-Rffzg Acid [-U Capsule (formulary)] 1 each PO DAILY@ 1200 cap 05/31/17 [Rx] metroNIDAZOLE [Flagyl] 500 mg PO BID #14 tab 05/31/17 [Rx] Follow up Appointment(s)/Referral(s): None,Stated [Primary Care Provider] - 1-2 days Ani Watts DO [Doctor of Osteopathic Medicine] - 3 Days Discharge Disposition: HOME SELF-CARE
[2017-05-31 08:34] VITALS: BP 129/68; PULSE 70; RESP 20; TEMP 97.5
[2017-05-31] MEDS: LACTATED RINGERS 1,000 ML IV SCH (08:44)
[2017-05-31] MEDS: metroNIDAZOLE 500 MG TAB PO SCH (08:45)
[2017-05-31] MEDS: CEFEPIME 1 GM in SODIUM CHLORIDE 0.9% 50 ML IVPB SCH (08:45)
[2017-05-31 09:08] LABS: HGB 7.6 gm/dL (11.4-16.0); Hypochromasia Slight; MCH 24.1 pg (25.0-35.0); MCHC 31.5 g/dL (31.0-37.0); MCV 76.7 fL (80.0-100.0); Mean Platelet Volume 7.8; Microcytosis Slight; Platelet Count 497 k/uL (150-450); RBC 3.13 m/uL (3.80-5.40); RDW 15.8 % (11.5-15.5)
== END 2017-05-31 10:35 | disposition home or self-care (01) | DRG 776 ==
LOC: EC 19:03 → 6SEL 19:47 → EC 21:21 → 6PED 05-29 12:43
PROVIDERS: ADMIT Obstetrics & Gynecology; ATTEND Obstetrics & Gynecology
DX: O86.0 Infection of obstetric surgical wound (principal); L03.311 Cellulitis of abdominal wall; O34.211 Maternal care for low transverse scar from previous cesarean delivery; O90.2 Hematoma of obstetric wound; Z88.0 Allergy status to penicillin; Z88.1 Allergy status to other antibiotic agents; Z91.040 Latex allergy status; Z79.1 Long term (current) use of non-steroidal anti-inflammatories (NSAID); Z79.891 Long term (current) use of opiate analgesic; Z87.891 Personal history of nicotine dependence
CPT/HCPCS: 36415; 74177; 80053; 83605; 85025; 85027; 87040; 87070; 87075; 87077; 87186; 87205; 96360; 99284

== ENCOUNTER 2022-10-20 10:08 | Inpatient (IN) | payer OTHER ==
[~2022-10-20 10:08] MED LIST: CELLULOSE,OXIDIZED 1 EACH EACH MISCELLANE ONE
[2022-10-20] MEDS ORDERED: TRANEXAMIC ACID IN NACL,ISO-OS 1,000 MG in EMPTY BAG 1 BAG IV PRN (10:29)
[2022-10-20] MEDS ORDERED: CITRIC ACID-SODIUM CITRATE 15 ML CUP PO ONE (10:29)
[2022-10-20] MEDS ORDERED: METHYLERGONOVINE 0.2 MG/ML 1 ML AMP IM PRN (10:29)
[2022-10-20] MEDS ORDERED: CARBOPROST TROMETHAMINE 250 MCG/ML 1 ML AMP IM PRN (10:29)
[2022-10-20] MEDS ORDERED: OXYTOCIN 10 UNIT/ML 1 ML VIAL IM PRN (10:29)
[2022-10-20] MEDS ORDERED: miSOPROStoL 200 MCG TAB PO PRN (10:29)
[2022-10-20] MEDS ORDERED: OXYTOCIN 30 UNITS/500 ML NS 30 UNIT in SALINE 1 500ML.BAG IV SCH ×2 (10:30→13:30)
[2022-10-20] MEDS ORDERED: ceFAZolin 3 GM in SODIUM CHLORIDE 0.9% 100 ML IVPB ONE (10:55)
[2022-10-20] MEDS: LACTATED RINGERS 1,000 ML IV SCH ×4 (11:06→18:57)
[2022-10-20 11:07] LABS: Basophils % (A) 0 %; Eosinophils # (A) 0.1 k/uL (0-0.7); Eosinophils % (A) 1 %; HCT 31.7 % (34.0-46.0); HGB 10.6 gm/dL (11.4-16.0); Lymphocytes # (A) 1.3 k/uL (1.0-4.8); Lymphocytes % (A) 20 %; MCH 25.7 pg (25.0-35.0); MCHC 33.6 g/dL (31.0-37.0); MCV 76.3 fL (80.0-100.0); Mean Platelet Volume 8.7; Microcytosis Slight; Monocytes # (A) 0.3 k/uL (0-1.0); Monocytes % (A) 5 %; Neutrophils # (A) 4.6 k/uL (1.3-7.7); Neutrophils % (A) 71 %; Platelet Count 250 k/uL (150-450); RBC 4.15 m/uL (3.80-5.40); RDW 15.8 % (11.5-15.5); WBC 6.5 k/uL (3.8-10.6)
--- NOTE | 2022-10-20 12:00 | P.HPOB ---
History of Present Illness H&P Date: 10/20/22 Chief Complaint: 39-0/7 weeks, previous section, requesting repeat the patient is a 27-year-old 3 para 1011 admitted at 39-0/7 weeks as established by last menstrual period and confirmed by 19 week ultrasound. She is admitted for repeat low transverse section having undergone a previous section. That previous surgery was complicated by postoperative wound infection and subsequent sepsis. This has been entirely uncomplicated. On labor and delivery, all signs reassuring with a category 1 heart rate tracing. Group B strep status is negative. Obstetrical history: 3 para 1011 with 1 previous section complicated by sepsis and wound infection as noted above. Current statistics are listed in history present illness. EDC of 10/26/2022 was established by last menstrual period and confirmed by 19 week ultrasound. Laboratory workup demonstrates a blood type of O+ with a negative antibody screen. Rubella status is immune. Remainder of laboratory workup was normal. Early Glucola and second trimester Glucola were both within normal limits. Group B strep status is negative. Gynecologic history: Unremarkable with no history of any infections to include STDs. Review of Systems review of systems is confined to history of present illness. Past Medical History Past Medical History: No Reported History Additional Past Medical History / Comment(s): Obstetric history: This is her first and she has had care with me since 11 weeks. O+, abs neg, RUb nonimmune, Treponemal ab neg, Hep B neg, toxo neg. GBS neg. History of Any Multi-Drug Resistant Organisms: None Reported Past Surgical History: Section Past Anesthesia/Blood Transfusion Reactions: Postoperative Nausea & Vomiting (PONV) Past Psychological History: Anxiety, Depression Smoking Status: Former smoker Past Alcohol Use History: None Reported Past Drug Use History: None Reported - Past Family History Father Family Medical History: No Reported History Brother(s) Family Medical History: Musculoskeletal Disorder Additional Family Medical History / Comment(s): brain tumor Mother Additional Family Medical History / Comment(s): hx fluid on brain, low iron Medications and Allergies Home Medications Medication Instructions Recorded Confirmed Type Eyd-Snyk-Gfgfg Acid 1 each PO DAILY@1200 cap 05/31/17 10/20/22 Rx [-U Capsule (formulary)] Iron 18 mg PO DAILY 10/20/22 10/20/22 History Sertraline [Zoloft] 50 mg PO DAILY 10/20/22 10/20/22 History Allergies Allergy/AdvReac Type Severity Reaction Status Date / Time amoxicillin [Amoxicillin] Allergy Rash/Hives Verified 10/20/22 10:28 latex Allergy Rash/Hives Verified 10/20/22 10:28 Penicillins Allergy Rash/Hives Verified 10/20/22 10:28 Exam Vital Signs Temp Pulse Resp BP Pulse Ox 10/20/22 10:58 97.7 F 103 H 16 144/91 98 Intake and Output 10/19/22 10/20/22 10/20/22 22:59 06:59 14:59 Other: Weight 134.717 kg in general, this is a well-developed, morbidly obese white female in no acute distress. Her heart has a regular rhythm and rate without murmur. Her lungs are clear to auscultation bilaterally in all sears. Her abdomen is obese, gravid, nondistended, has normal active bowel sounds, soft, nontender, and without any palpable masses aside from uterine fundus. Her extremities without any cyanosis, clubbing, or edema and are nontender to palpation bilaterally. Digital cervical examination is deferred. Results Result Diagrams: 10/20/22 10:35 Abnormal Lab Results - Last 24 Hours (Table) 10/20/22 Range/Units 10:35 Hgb 10.6 L (11.4-16.0) gm/dL Hct 31.7 L (34.0-46.0) % MCV 76.3 L (80.0-100.0) fL RDW 15.8 H (11.5-15.5) % Assessment and Plan (1) Previous section Current Visit: Yes Status: Acute Code(s): Z98.891 - HISTORY OF UTERINE SCAR FROM PREVIOUS SURGERY SNOMED Code(s): 784881385 (2) Term Current Visit: Yes Status: Acute Code(s): Z34.90 - ENCNTR FOR SUPRVSN OF NORMAL , UNSP, UNSP TRIMESTER SNOMED Code(s): 70363801 Plan: the patient is admitted for repeat low transverse section. The risks and complications of been thoroughly discussed and she has understood and agreed to proceed.
[2022-10-20] MEDS ORDERED: ONDANSETRON 4 MG/2 ML VIAL ONE (12:05)
[2022-10-20] MEDS ORDERED: PHENYLEPHRINE-0.9% NACL SYG 1,000 MCG/10 ML SYRINGE ONE (12:05)
[2022-10-20] MEDS ORDERED: fentaNYL (PF) 50 MCG/ML 2 ML AMP ONE (12:05)
[2022-10-20] MEDS ORDERED: KETOROLAC 30 MG/ML 1 ML VIAL ONE (12:05)
[2022-10-20] MEDS ORDERED: MORPHINE SULFATE (PF) 0.3 MG/0.3 ML SYR ONE (12:05)
[2022-10-20] MEDS ORDERED: METOCLOPRAMIDE 5 MG/ML 2 ML VIAL IVP PRN (13:18)
[2022-10-20] MEDS ORDERED: ZOLPIDEM 5 MG TAB PO PRN (13:18)
[2022-10-20] MEDS ORDERED: KETOROLAC 15 MG/ML 1 ML VIAL IVP PRN (13:18)
[2022-10-20] MEDS ORDERED: diphenhydrAMINE 50 MG CAP PO PRN (13:18)
[2022-10-20] MEDS ORDERED: diphenhydrAMINE 25 MG CAP PO PRN (13:18)
[2022-10-20] MEDS ORDERED: ONDANSETRON 4 MG/2 ML VIAL IVP PRN (13:18)
[2022-10-20] MEDS ORDERED: diphenhydrAMINE 50 MG/ML 1 ML VIAL IVP PRN ×2 (13:18)
[2022-10-20] MEDS ORDERED: LANOLIN CREAM 5 GM TUBE TOPICAL PRN (13:18)
[2022-10-20] MEDS ORDERED: NALOXONE 0.4 MG/ML 1 ML VIAL IV PRN (13:18)
[2022-10-20] MEDS ORDERED: SIMETHICONE 80 MG CHEWABLE PO PRN (13:18)
--- NOTE | 2022-10-20 13:27 | P.OP ---
Date of Procedure: 10/20/22 Preoperative Diagnosis: #1. 39-0/7 weeks, previous section, requesting repeat #2. 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 Repeat low transverse section Anesthesia: spinal Surgeon: Anibal Sheppard [employer] Managing Editor #1: Tamera Varghese Estimated Blood Loss (ml): 680 IV fluids (ml): 1,000 Urine output (ml): 200 Pathology: none sent Condition: stable Disposition: floor Operative Findings: the patient was taken the operating room where, intraoperatively, she was found to have moderate adhesions at the level of the fascia and muscles and mild to moderate adhesive disease between the anterior lower segment of the uterus and the anterior abdominal wall a which was lysed intraoperatively in order to deliver the baby and to be able to exteriorize the uterus. The uterus was otherwise entirely normal to inspection as were the bilateral tubes and ovaries. There was no further adhesive disease iron the pelvis. The patient was delivered of a viable 8 lbs. 6 oz. baby boy with Apgars of 9 at 1 minute and 9 at 5 minutes in the vertex presentation. The placenta was delivered manually, intact, and grossly normal with a grossly normal three-vessel cord. A piece of Interceed was placed across the uterine incision and lower uterine segment to attempt to decrease the likelihood of further adhesion formation in the future. Description of Procedure: the patient was prepped and draped in usual fashion after spinal anesthesia was administered by the anesthesiologist. A Pfannenstiel incision was made through pre-existing incision and extended into the abdominal cavity with some minor difficulty after entering the peritoneal cavity in the muscles from the fascia and then the abdominal wall from the lower uterine segment. These were done sharply both with scissors and with the Bovie. After creating adequate room, the bladder peritoneum was elevated, incised, and reflected distally. A 2 cm incision was made in the transverse plane of the lower uterine segment to enter the uterus at which time clear fluid was noted. Incision was extended in both directions using the bandage scissors. The head was delivered up and through the incision where the nose and mouth were thoroughly suctioned. The remainder of the was delivered onto the field where the cord was doubly clamped, cut, and the passed resuscitative measures with weight and Apgars as noted above. A segment of cord was doubly clamped, cut, and set aside should cord gases become necessary. The placenta was delivered manually and intact as noted above. Initial attempts to exteriorize the uterus failed secondary to some adhesions on the lateral portions of the lower uterine segment which were lysed sharply with the Bovie and with a Metzenbaum scissors. Once the uterus was adequately freed, it was exteriorized and the patient placed in small amount of Trendelenburg positioning. The margins of the uterine incision were grasped with Gomes clamps after ensuring that the uterine cavity was swept of any remaining blood or placental membranous fragments. The incision was closed in 2 layers, the first layer being a running locking stitch of 0 chromic catgut followed by a running imbricating stitch of 0 chromic catgut, each from margin to margin. Any small points of bleeding from previous dissection and on the incision were made hemostatic with the Bovie. The posterior cul-de-sac was suctioned with a guard followed by a laparotomy sponge and the uterine and ovarian findings are normal as noted above. The uterus was replaced in the abdominal cavity and the gutters swept of any remaining blood, fluid, or clot. Examination of the incision demonstrated some ongoing bleeding at the left angle which could not be controlled with the Bovie. It was ultimately controlled well with a single fihuwg-bq-fzvky stitch of 0 chromic catgut. Any small points of bleeding were then made hemostatic with the Bovie. After ensuring hemostasis, layer of Interceed was laid across the uterine incision and will superior portion of the lower uterine segment where some of the adhesions had been to attempt to decrease adhesive disease in the future. The parietal peritoneum was loosely reapproximated and layer of muscles examined and made hemostatic with the Bovie. The fascia was closed with 2 running stitches of 0 Vicryl proceeding from the lateral margins to the midpoint. The subcutaneous tissues were irrigated, made hemostatic with the Bovie, and reapproximated with a running stitch of 30 plain catgut. The skin was reapproximated with a running subcuticular stitch of 4-0 Vicryl followed by half-inch Steri-Strips placed with Mastisol. Quantitative blood loss for the case was 680 mL. There were no complications. All sponge, instrument, needle counts were correct. The patient tolerated the procedure well and proceeded to the recovery room in stable condition. Both mother and are resting comfortably in recovery.
[2022-10-20] MEDS: ACETAMINOPHEN TAB 500 MG TAB PO SCH ×2 (17:49→23:56)
[2022-10-20] MEDS: SENNOSIDES-DOCUSATE SODIUM 1 EACH TAB PO SCH (19:43)
[2022-10-20] MEDS: IBUPROFEN 600 MG TAB PO SCH (19:43)
[2022-10-21] MEDS: IBUPROFEN 600 MG TAB PO SCH ×4 (01:00→19:32)
[2022-10-21] MEDS: ACETAMINOPHEN TAB 500 MG TAB PO SCH ×4 (04:07→22:20)
[2022-10-21] MEDS: LACTATED RINGERS 1,000 ML IV SCH (04:08)
--- NOTE | 2022-10-21 06:47 | P.PN ---
Progress Note - Text 10/21/22 631am 27-year-old female status post with spinal Duramorph. Patient seen and evaluated for postop pain control, she has a VAS of 2 with no complains of nausea or vomiting. She does have pruritus which should subside soon
[2022-10-21] MEDS: SENNOSIDES-DOCUSATE SODIUM 1 EACH TAB PO SCH ×2 (07:58→19:32)
[2022-10-21 07:59] LABS: Anisocytosis Slight; Basophils % (A) 0 %; Eosinophils % (A) 0 %; HCT 20.6 % (34.0-46.0); Hypochromasia Slight; Lymphocytes # (A) 1.7 k/uL (1.0-4.8); Lymphocytes % (A) 18 %; MCH 24.9 pg (25.0-35.0); MCHC 31.9 g/dL (31.0-37.0); Mean Platelet Volume 9.1; Microcytosis Slight; Monocytes # (A) 0.5 k/uL (0-1.0); Monocytes % (A) 6 %; Neutrophils # (A) 6.7 k/uL (1.3-7.7); Neutrophils % (A) 73 %; Platelet Count 217 k/uL (150-450); RBC 2.64 m/uL (3.80-5.40); RDW 16.4 % (11.5-15.5); WBC 9.2 k/uL (3.8-10.6)
[2022-10-21 08:22] LABS: HGB 6.6 gm/dL (11.4-16.0)
--- NOTE | 2022-10-21 08:33 | P.PNOBGPC ---
Subjective - Subjective Interval history: some dizziness last evening when trying to get up, has resolved as of this mo rning. Patient reports: Reports appetite normal, Reports voiding normally, Reports pain well controlled, Reports ambulating normally [place]: doing well Objective - Vital Signs Latest vital signs: Vital Signs Temp Pulse Resp BP BP Pulse Ox 10/21/22 04:00 98.9 F 98 16 105/62 96 10/20/22 23:58 97.8 F 109 H 18 105/66 98 10/20/22 19:41 98.4 F 102 H 18 134/87 99 10/20/22 18:00 98.8 F 122 H 16 92/65 96 10/20/22 15:20 97.3 F L 85 16 128/79 96 10/20/22 14:50 75 16 134/86 98 10/20/22 14:20 75 16 131/75 100 10/20/22 14:05 83 16 132/91 100 10/20/22 13:50 89 16 128/64 100 10/20/22 13:35 93 16 137/72 100 10/20/22 13:20 97.0 F L 89 16 136/71 100 10/20/22 10:58 97.7 F 103 H 16 144/91 98 Intake and Output 10/20/22 10/21/22 10/21/22 22:59 06:59 14:59 Intake Total 540 Output Total 500 200 Balance -500 340 Intake: Oral 540 Output: Urine 300 200 Uretheral ([place]) 200 Output, Quantitative 200 Blood Loss - Exam Extremities: Present: normal Abdomen: Present: normal appearance, soft. Absent: distention, tenderness Incision: Present: normal, dry, intact Uterus: Present: normal, firm (the uterine fundus as tonic and appropriately tender at the umbilicus.) - Labs Labs: Abnormal Lab Results - Last 24 Hours (Table) 10/20/22 10/21/22 Range/Units 10:35 07:29 RBC 2.64 L (3.80-5.40) m/uL Hgb 10.6 L 6.6 L* D (11.4-16.0) gm/dL Hct 31.7 L 20.6 L (34.0-46.0) % MCV 76.3 L 78.0 L (80.0-100.0) fL MCH 24.9 L (25.0-35.0) pg RDW 15.8 H 16.4 H (11.5-15.5) % Assessment and Plan (1) Previous section Current Visit: Yes Status: Acute Code(s): Z98.891 - HISTORY OF UTERINE SCAR FROM PREVIOUS SURGERY SNOMED Code(s): 363687038 (2) Term Current Visit: Yes Status: Acute Code(s): Z34.90 - ENCNTR FOR SUPRVSN OF NORMAL , UNSP, UNSP TRIMESTER SNOMED Code(s): 74239575 (3) S/P section Current Visit: Yes Status: Acute Code(s): Z98.891 - HISTORY OF UTERINE SCAR FROM PREVIOUS SURGERY SNOMED Code(s): 032603701 Plan: the patient does have a low hemoglobin this morning and this will be rechecked tomorrow. We will observe today for signs or symptoms of hypovolemia. Vital signs are stable and her symptoms have resolved to this point. I have encouraged her to get up and ambulate routinely. She is otherwise tolerating regular diet and voiding normally. Possible discharge home tomorrow pending no complications or need for intervention regarding her hemoglobin.
[2022-10-22] MEDS: IBUPROFEN 600 MG TAB PO SCH ×4 (02:06→20:08)
[2022-10-22] MEDS: ACETAMINOPHEN TAB 500 MG TAB PO SCH ×3 (05:28→16:46)
[2022-10-22 08:17] LABS: Anisocytosis Slight; Basophils % (A) 0 %; Eosinophils # (A) 0.1 k/uL (0-0.7); Eosinophils % (A) 2 %; Hypochromasia Slight; Lymphocytes # (A) 1.3 k/uL (1.0-4.8); Lymphocytes % (A) 18 %; MCH 25.1 pg (25.0-35.0); MCHC 31.7 g/dL (31.0-37.0); MCV 79.2 fL (80.0-100.0); Mean Platelet Volume 8.7; Monocytes # (A) 0.4 k/uL (0-1.0); Monocytes % (A) 6 %; Neutrophils # (A) 5.2 k/uL (1.3-7.7); Neutrophils % (A) 73 %; Platelet Count 210 k/uL (150-450); RBC 2.22 m/uL (3.80-5.40); RDW 16.7 % (11.5-15.5); WBC 7.2 k/uL (3.8-10.6)
[2022-10-22 08:26] LABS: HCT 17.6 % (34.0-46.0); HGB 5.6 gm/dL (11.4-16.0)
[2022-10-22] MEDS: SENNOSIDES-DOCUSATE SODIUM 1 EACH TAB PO SCH (08:45)
[2022-10-22 08:51] VITALS: RESP 16
--- NOTE | 2022-10-22 10:05 | P.PNOBGPC ---
Subjective - Subjective Interval history: the patient denies any signs or symptoms of orthostasis. Her color is good and she feels well. She reports normal bowel activity including bowel movement as well as normal urination. She is up and ambulating routinely without dizziness or other symptoms. Patient reports: Reports appetite normal, Reports voiding normally, Reports pain well controlled, Reports ambulating normally [place]: doing well, nursing well Objective - Vital Signs Latest vital signs: Vital Signs Temp Pulse Resp BP BP Pulse Ox 10/22/22 08:45 97.9 F 80 16 131/78 98 10/22/22 00:00 98.7 F 98 18 108/69 97 10/21/22 20:00 98 F 92 18 136/93 96 10/21/22 16:00 98.2 F 87 16 112/70 99 10/21/22 12:00 82 18 104/65 98 Intake and Output 10/21/22 10/22/22 10/22/22 22:59 06:59 14:59 Other: Voiding Method Toilet # Voids 2 2 - Exam Extremities: Present: normal Abdomen: Present: normal appearance, soft, other (morbid obesity). Absent: distention, tenderness Incision: Present: normal, dry, intact Uterus: Present: normal, firm (the uterine fundus is tonic inappropriately tender around the umbilicus.) - Labs Labs: Abnormal Lab Results - Last 24 Hours (Table) 10/22/22 Range/Units 07:30 RBC 2.22 L (3.80-5.40) m/uL Hgb 5.6 L* (11.4-16.0) gm/dL Hct 17.6 L* (34.0-46.0) % MCV 79.2 L (80.0-100.0) fL RDW 16.7 H (11.5-15.5) % Assessment and Plan (1) Previous section Current Visit: Yes Status: Acute Code(s): Z98.891 - HISTORY OF UTERINE SCAR FROM PREVIOUS SURGERY SNOMED Code(s): 188241325 (2) Term Current Visit: Yes Status: Acute Code(s): Z34.90 - ENCNTR FOR SUPRVSN OF NORMAL , UNSP, UNSP TRIMESTER SNOMED Code(s): 01684661 (3) S/P section Current Visit: Yes Status: Acute Code(s): Z98.891 - HISTORY OF UTERINE SCAR FROM PREVIOUS SURGERY SNOMED Code(s): 637982772 (4) Postoperative anemia Current Visit: Yes Status: Acute Code(s): D64.9 - ANEMIA, UNSPECIFIED SNOMED Code(s): 195436460 Plan: tthe patient's hemoglobin dropped by 1 g overnight but she remains entirely asymptomatic. She declines transfusion at this time as she feels well. I have no explanation as to the drop in hemoglobin as her vital signs are stable, her wound is entirely normal in appearance, her abdomen is soft and appropriately tender, and she is performing all activities of daily living. We discussed options for treatment including empiric transfusion versus continued observation and repeat hemoglobin in the morning. We have opted for the latter choice. CBC will be pretreated in the morning. Should it be the same or lower, strong consideration will be given to empiric transfusion at that time regardless of the patient's symptomatology. She and her are both in agreement with the plan as it has been outlined.
[2022-10-23] MEDS: ACETAMINOPHEN TAB 500 MG TAB PO SCH ×3 (00:27→06:37)
[2022-10-23] MEDS: SENNOSIDES-DOCUSATE SODIUM 1 EACH TAB PO SCH ×2 (01:12→08:52)
[2022-10-23] MEDS: IBUPROFEN 600 MG TAB PO SCH ×2 (02:01→08:48)
[2022-10-23 08:07] LABS: Anisocytosis Slight; Basophils % (A) 0 %; Eosinophils # (A) 0.2 k/uL (0-0.7); Eosinophils % (A) 3 %; Hypochromasia Slight; Lymphocytes # (A) 1.7 k/uL (1.0-4.8); Lymphocytes % (A) 22 %; MCHC 31.5 g/dL (31.0-37.0); MCV 79.2 fL (80.0-100.0); Mean Platelet Volume 9.1; Monocytes # (A) 0.4 k/uL (0-1.0); Monocytes % (A) 6 %; Neutrophils # (A) 5.2 k/uL (1.3-7.7); Neutrophils % (A) 68 %; Platelet Count 255 k/uL (150-450); RBC 2.53 m/uL (3.80-5.40); RDW 16.3 % (11.5-15.5); WBC 7.6 k/uL (3.8-10.6)
[2022-10-23 08:14] LABS: HGB 6.3 gm/dL (11.4-16.0)
--- NOTE | 2022-10-23 08:14 | P.PNOBGPC ---
Subjective - Subjective Principal diagnosis: s/p repeat LTCS Interval history: The patient is doing well this morning and had no acute events overnight. She has no complaints this morning. She reports minimal lochia, passing flatus, voiding without difficulty, ambulating, and eating/drinking without nausea or vomiting. She is bottle-feeding her without difficulty. She denies chest pain, shortness of breathing, fevers, or chills overnight. She denies pain or swelling in the legs. She denies lightheadedness or dizziness with ambulation. She desires discharge home today. Patient reports: Reports appetite normal, Reports voiding normally, Reports pain well controlled, Reports ambulating normally [place]: doing well Objective - Vital Signs Latest vital signs: Vital Signs Temp Pulse Resp BP BP Pulse Ox 10/23/22 00:00 98.3 F 98 16 131/84 99 10/22/22 16:00 98.3 F 72 16 127/72 99 10/22/22 08:45 97.9 F 80 16 131/78 98 - Exam Extremities: Present: normal Abdomen: Present: normal appearance Incision: Present: normal, dry, intact Uterus: Present: normal, firm - Labs Labs: Abnormal Lab Results - Last 24 Hours (Table) 10/22/22 Range/Units 07:30 RBC 2.22 L (3.80-5.40) m/uL Hgb 5.6 L* (11.4-16.0) gm/dL Hct 17.6 L* (34.0-46.0) % MCV 79.2 L (80.0-100.0) fL RDW 16.7 H (11.5-15.5) % Assessment and Plan Assessment: 27 year old now POD#3 s/p repeat LTCS Plan: 1. Postoperative. Patient meeting all postoperative milestones appropriately. 2. Acute Blood Loss Anemia. Hgb 5.6 yesterday, patient asymptomatic and feeling great. Repeat CBC pending this morning. If still the same level, will give blood tranfusion. Patient consented. 3. Viable male . s/p circumcision, doing well at bedside. Dispo: Anticipate discharge home today after likely blood transfusion.
--- NOTE | 2022-10-23 08:22 | P.DS ---
Providers Date of admission: 10/20/22 10:08 Expected date of discharge: 10/23/22 Attending physician: Anibal Sheppard Primary care physician: Stated None Hospital Course: 27 year old now POD#3 s/p repeat LTCS. Postoperative course has been complicated by asymptomatic acute blood loss anemia down to 5.6. The patient has been completely asymptomatic, has walked the halls without dizziness or lightheadedness, has not had any hypotension or tachycardia. She is feeling great and declines blood transfusion. Hgb has increased to 6.3 today. Given the patient's clinical appearance and strong opposition to blood transfusion, we will defer the blood transfusion. I had a long conversation about PO ferrous sulfate use at home and the patient plans to take this as discussed. The patient is doing well this morning and had no acute events overnight. She has no complaints this morning. She reports minimal lochia, passing flatus, voiding without difficulty, ambulating, and eating/drinking without nausea or vomiting. doing well at bedside, s/p circumcision. She denies chest pain, shortness of breathing, fevers, or chills overnight. She denies pain or swelling in the legs. Postoperative restrictions are reviewed with the patient including pelvic rest for 6 weeks, no lifting heavier than 15 pounds for 6 weeks. The patient is encouraged to call the office if she experiences any heavy bleeding, foul- smelling discharge, breast complaints, or any if she has any other concerns. She will follow up in the office with in 2 kelley Sheppard for postoperative exam. All questions are answered. Assessment: 27 year old now POD#3 s/p repeat LTCS Patient Condition at Discharge: Good Plan - Discharge Summary Discharge Rx Participant: No New Discharge Prescriptions: No Action Kud-Rlpt-Sdyao Acid [-U Capsule (formulary)] 1 each PO DAILY@1200 cap Sertraline [Zoloft] 50 mg PO DAILY Iron 18 mg PO DAILY Discharge Medication List Iuy-Xvgz-Ecmsa Acid [-U Capsule (formulary)] 1 each PO DAILY@1200 cap 05/31/17 [Rx] Iron 18 mg PO DAILY 10/20/22 [History] Sertraline [Zoloft] 50 mg PO DAILY 10/20/22 [History] Follow up Appointment(s)/Referral(s): Anibal Sheppard MD [STAFF PHYSICIAN] - 2 Weeks Patient Instructions/Handouts: (DC), Iron Deficiency Anemia (GEN), Iron Rich Diet (DC), Depression (DC), Bleeding (DC) Activity/Diet/Wound Care/Special Instructions: No lifting heavier than 15 pounds for 6 weeks. Pelvic rest for 6 weeks. Discharge Disposition: HOME SELF-CARE
[2022-10-23 09:31] VITALS: BP 141/80; PULSE 80; TEMP 98
[2022-10-23] MEDS ORDERED: FERROUS SULFATE 325 MG TAB PO SCH (12:30)
== END 2022-10-23 10:27 | disposition home or self-care (01) | DRG 540 ==
LOC: 4FBP 10:08
PROVIDERS: ADMIT Obstetrics & Gynecology; ATTEND Obstetrics & Gynecology
PROC: 10D00Z1 Extraction of Products of Conception, Low, Open Approach (ICD-10-PCS; principal; 2022-10-20 12:00)
DX: O34.211 Maternal care for low transverse scar from previous cesarean delivery (principal); D62 Acute posthemorrhagic anemia; O99.214 Obesity complicating childbirth; O99.892 Other specified diseases and conditions complicating childbirth; Z37.0 Single live birth; F32.A Depression, unspecified; E66.01 Morbid (severe) obesity due to excess calories; O99.73 Diseases of the skin and subcutaneous tissue complicating the puerperium; O99.344 Other mental disorders complicating childbirth; O90.81 Anemia of the puerperium; Z87.891 Personal history of nicotine dependence; N73.6 Female pelvic peritoneal adhesions (postinfective); L29.9 Pruritus, unspecified; F41.9 Anxiety disorder, unspecified; Z3A.39 39 weeks gestation of pregnancy; Z79.899 Other long term (current) drug therapy; Z88.1 Allergy status to other antibiotic agents; Z88.0 Allergy status to penicillin; Z91.040 Latex allergy status
CPT/HCPCS: 85025; 86850; 86900; 86901